=== PATIENT | female | born 1975 | race Caucasian/White ===

== ENCOUNTER 2020-04-28 08:02 | Outpatient (CLI) | payer OTHER, SELFPAY ==
--- NOTE | ~2020-04-28 | MM_ITS ---
EXAMINATION: MM screening [facility] w florinda HISTORY: Screening TECHNIQUE: Craniocaudal and mediolateral oblique 3-D tomosynthesis images were obtained and synthetic 2-D images were generated. CAD analysis was submitted and interpreted. COMPARISON: Comparison to multiple prior studies sequentially, with oldest reviewed study dated 04/05. BREAST PARENCHYMAL COMPOSITION: There are scattered areas of fibroglandular density. FINDINGS: There is no evidence of suspicious mass, calcification, or architectural distortion to sugg est malignancy in either breast. There has been no suspicious interval change. IMPRESSION: 1. No mammographic evidence of malignancy. 2. Recommend routine screening mammography in one year. BI-RADS Category 1: Negative Reviewed, dictated and finalized at location A.
== END 2020-04-28 08:03 | disposition home or self-care (01) ==
PROVIDERS: PCP Internal Medicine; Visit Provider Internal Medicine
DX: Z12.31 Encounter for screening mammogram for malignant neoplasm of breast (principal)
CPT/HCPCS: 77063; 77067

== ENCOUNTER 2021-09-17 08:26 | Outpatient (CLI) | payer OTHER, SELFPAY ==
--- NOTE | ~2021-09-17 | MM_ITS ---
EXAMINATION: MM screening [facility] BI w florinda HISTORY: Screening mammogram TECHNIQUE: Craniocaudal and mediolateral oblique 3-D tomosynthesis images were obtained and synthetic 2-D images were generated. CAD analysis was submitted and interpreted. COMPARISON: 04/28/2020, 04/09/2019, 04/05/2018 BREAST PARENCHYMAL COMPOSITION: There are scattered areas of fibroglandular density. FINDINGS: A stable asymmetry is present in the middle third of the left breast on the craniocaudal vi ew. There is no evidence of suspicious mass, calcification, or architectural distortion to suggest ma lignancy in either breast. There has been no suspicious interval change. IMPRESSION: 1. No mammographic evidence of malignancy. 2. Recommend routine screening mammography in one year. BI-RADS Category 2: Benign finding(s). Reviewed, dictated and finalized at location A. NTORY TRANSCRIBER
== END 2021-09-17 08:27 | disposition home or self-care (01) ==
PROVIDERS: PCP Internal Medicine; Visit Provider Internal Medicine
DX: Z12.31 Encounter for screening mammogram for malignant neoplasm of breast (principal)
CPT/HCPCS: 77063; 77067

== ENCOUNTER 2023-01-11 15:31 | Outpatient (CLI) | payer OTHER, SELFPAY ==
--- NOTE | ~2023-01-11 | MM_ITS ---
EXAMINATION: MM screening [facility] BI w florinda HISTORY: Screening mammogram TECHNIQUE: Craniocaudal and mediolateral oblique 3-D tomosynthesis images were obtained and synthetic 2-D images were generated. CAD analysis was submitted and interpreted. COMPARISON: 09/17/2021, 04/28/2020, 04/09/2019 BREAST PARENCHYMAL COMPOSITION: There are scattered areas of fibroglandular density. FINDINGS: No suspicious mass, calcification, or architectural distortion are identified in either lizbeth ast to suggest malignancy. There has been no suspicious interval change. IMPRESSION: 1. No mammographic evidence of malignancy. 2. Recommend routine screening mammography in one year. BI-RADS Category 1: Negative Reviewed, dictated and finalized at location A.
== END 2023-01-11 15:32 | disposition home or self-care (01) ==
PROVIDERS: PCP Internal Medicine
DX: Z12.31 Encounter for screening mammogram for malignant neoplasm of breast (principal)
CPT/HCPCS: 77063; 77067

== ENCOUNTER 2023-07-12 18:41 | Emergency (ER) | payer OTHER, SELFPAY ==
--- NOTE | ~2023-07-12 | XR_ITS ---
EXAMINATION: XR foot LT min 3V DATE: 07/12/2023 19:14 INDICATION: Left foot pain. Fall. TECHNIQUE: 4 views of left foot were obtained. COMPARISON: None. FINDINGS: There is moderate hallux valgus. No fracture. There is mild osteoarthritis of first metatar sophalangeal joint and first interphalangeal joint. There are enthesophytes at the posterior and plan tar aspects of calcaneal tuberosity. IMPRESSION: 1. Moderate hallux valgus. 2. Mild polyarticular osteoarthritis. Reviewed, dictated and finalized at location E.
--- NOTE | ~2023-07-12 | XR_ITS ---
EXAMINATION: XR ankle LT min 3V DATE: 07/12/2023 19:13 INDICATION: Left ankle injury and pain. TECHNIQUE: 4 views of left ankle were obtained. COMPARISON: None. FINDINGS: Bone alignment is normal. No fracture. 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 There is mild osteoarthritis of talonavicular joint. There are enthesoph ytes at the posterior and plantar aspects of calcaneal tuberosity. IMPRESSION: 1. No acute fracture. Reviewed, dictated and finalized at location E. IMPRESSION: 1. No acute fracture.
--- NOTE | ~2023-07-12 | XR_ITS ---
EXAMINATION: XR knee LT 3V DATE: 07/12/2023 19:14 INDICATION: Left knee pain. Injury. TECHNIQUE: 3 views of left knee were obtained. COMPARISON: None. FINDINGS: Bone alignment is normal. No fracture. There is mild tricompartmental osteoarthritis. No kn ee joint effusion. IMPRESSION: 1. Mild left knee osteoarthritis. Reviewed, dictated and finalized at location E.
--- NOTE | 2023-07-12 18:43 | ED.LOWEXIN ---
HPI - Extremity Injury (Lower) General Chief Complaint: Extremity Injury, Lower Stated Complaint: Injured Knee/Foot Time Seen by Provider: 07/12/23 18:42 Source: patient Mode of arrival: ambulatory Limitations: no limitations History of Present Illness HPI Narrative: Flor is a 48-year-old female patient presenting to clinic today with complaints of left knee, left ankle, and left foot pain after falling today while at work. She reports that she missed a step when coming down the steps at work and fell down approximately 4 steps and hit her left knee and twisted her left ankle and foot. Has an abrasion to the left anterior knee-bleeding is controlled. Has slight bruising to the anterior knee as well with tenderness to palpation. Is reporting pain to the top of the lateral foot and ankle. Rates pain currently a 03/05 Related Data Home Medications Medication Instructions Recorded Confirmed multivitamin 1 cap PO DAILY 08/10/19 07/12/23 omeprazole 20 mg capsule,delayed 20 mg PO DAILY 08/10/19 07/12/23 release saliva substitute combo no.9 15 ml mucous membrane DAILY 08/10/19 07/12/23 (Biotene Dry Mouth Oral Rinse mouthwash) semaglutide (weight loss) 2.4 2.4 mg subcut WEEKLY 07/12/23 07/12/23 mg/0.75 mL subcutaneous pen injector ([employer]) Allergies Allergy/AdvReac Type Severity Reaction Status Date / Time No Known Allergies Allergy Verified 07/12/23 18:53 Review of Systems Review of Systems: Pertinent positives per HPI. Patient denies any fever, chills, rash, headache, visual changes, dizziness, cough, runny nose, sore throat, shortness of breath, chest pain, palpitations, nausea, vomiting, diarrhea, constipation, abdominal pain, or any urinary issues. [facility] Past Medical History Medical History Heartburn Obesity Family History Family History Grandparent Diabetes mellitus Family history of cardiovascular disease Social History Social History Smoking status: Never smoker Second hand tobacco smoke exposure: No Alcohol intake: current Alcohol use details: Pt drinks rarely. Comments At the time of my signature, I reviewed and agree with the nursing past medical, surgical, social, and family history. There is no relevant family history pertinent to the patient complaint. Exam Narrative: General: Well-developed, overweight, in no apparent distress Head: Normocephalic, atraumatic. Cardio: Regular rate and rhythm, s1 and s2 normal, no murmur appreciated. Resp: Clear to auscultation bilaterally, no rhonchi, rales, wheezing or rubs. Musculoskeletal: No deformity, abrasion and bruising noted over to the anterior knee, abrasion measuring approximately 2.5 cm, bleeding is controlled, tender to palpation over the anterior knee, left lateral ankle and left lateral dorsal foot with mild swelling noted,grossly normal range of motion, muscle strength strong and equal, peripheral pulse strong, no edema, no cyanosis, normal gait and station Course Course Emergency Course: Portions of this record may have been created with voice recognition software. Level of Care: Express Care Visit Vital Signs Vital signs: Vital Signs Temperature 36.4 C L 07/12/23 18:48 Pulse Rate 80 07/12/23 18:48 Respiratory Rate 18 07/12/23 18:48 Blood Pressure 109/61 07/12/23 18:48 Pulse Oximetry 100 07/12/23 18:48 Oxygen Delivery Room Air 07/12/23 18:48 Temperature 36.4 C L 07/12/23 18:48 Pulse Rate 80 07/12/23 18:48 Respiratory Rate 18 07/12/23 18:48 Blood Pressure 109/61 07/12/23 18:48 Pulse Oximetry 100 07/12/23 18:48 Oxygen Delivery Room Air 07/12/23 18:48 Vital signs reviewed MDM - Extremity Injury (Lower) MDM Narrative Medical decision making narrative: At the time of visit patient i
[2023-07-12 18:48] VITALS: BP 109/61; PULSE 80; RESP 18; TEMP 36.4; O2SAT 100
[2023-07-12] MEDS: TETANUS,DIPHTHERIA,AC PERTUSSIS ADULT (0.5 ML) BOOSTRIX IM (19:37)
== END 2023-07-12 19:37 | disposition home or self-care (01) ==
PROVIDERS: Emergency Provider Nurse Practitioner Family; PCP Internal Medicine
DX: S80.212A Abrasion, left knee, initial encounter (principal); S93.412A Sprain of calcaneofibular ligament of left ankle, initial encounter; S93.602A Unspecified sprain of left foot, initial encounter; Z79.899 Other long term (current) drug therapy; Z23 Encounter for immunization; W10.9XXA Fall (on) (from) unspecified stairs and steps, initial encounter
CPT/HCPCS: 73562; 73610; 73630; 90471; 90715; 99214; G0463

== ENCOUNTER 2023-12-23 12:16 | Emergency (ER) | payer OTHER, SELFPAY ==
[2023-12-23 12:36] VITALS: BP 106/74; PULSE 81; RESP 16; TEMP 37.3; O2SAT 100
--- NOTE | 2023-12-23 12:48 | ED.GENADULT ---
HPI - General Adult General Chief complaint: Urogenital-Female Stated complaint: pain when urinating Time Seen by Provider: 12/23/23 12:46 Source: patient, RN notes reviewed and old records reviewed Mode of arrival: ambulatory Limitations: no limitations History of Present Illness HPI narrative: 48-year-old female to Express Care with complaint of dysuria, urinary frequency, urinary urgency for 2 days. Patient has been treating at home with Tylenol with minimal relief. Patient denies fever, flank pain, abdominal pain. Related Data Home Medications Medication Instructions Recorded Confirmed multivitamin 1 cap PO DAILY 08/10/19 12/23/23 omeprazole 20 mg capsule,delayed 20 mg PO DAILY 08/10/19 12/23/23 release semaglutide (weight loss) 2.4 2.4 mg subcut WEEKLY 07/12/23 12/23/23 mg/0.75 mL subcutaneous pen injector ([email or web address]) cyanocobalamin (vitamin B-12) 1,000 mcg PO DAILY 12/23/23 12/23/23 1,000 mcg tablet Allergies Allergy/AdvReac Type Severity Reaction Status Date / Time No Known Allergies Allergy Verified 12/23/23 12:33 Review of Systems Review of Systems: All systems reviewed & are unremarkable except as noted in HPI and below Constitutional: Constitutional: Reports as per HPI, Denies body ache(s), Denies chills, Denies fever(s) and Denies poor appetite Eyes: Eyes: Reports no additional eye complaints ENT: Reports system reviewed and no additional complaints, except as documented Cardiovascular: Cardiovascular: Reports no additional cardiovascular complaints, Denies chest pain and Denies dyspnea Respiratory: Respiratory: Reports no additional respiratory complaints, Denies cough and Denies dyspnea Genitourinary: Genitourinary: Reports as per HPI, Reports nocturia, Reports dysuria, Denies flank pain and Reports urinary urgency Musculoskeletal: Musculoskeletal: Reports no additional musculoskeletal complaints Neurologic: Reports system reviewed and no additional complaints, except as documented Psychiatric: Psychiatric: Reports no additional psychiatric complaints [facility] Past Medical History Medical History Heartburn Obesity Family History Family History Grandparent Diabetes mellitus Family history of cardiovascular disease Social History Social History Smoking status: Never smoker Second hand tobacco smoke exposure: No Alcohol intake: current Alcohol use details: Pt drinks rarely. Comments At the time of my signature, I reviewed and agree with the nursing past medical, surgical, social, and family history. There is no relevant family history pertinent to the patient complaint. Exam Const: General: cooperative, healthy appearing, no acute distress, well developed, alert, uncomfortable, well groomed and well nourished Nutritional Appearance: well nourished Orientation/consciousness: patient oriented x3 Limitations: no limitations HENMT: Head: normal to inspection Ears: external ears normal Face/Nose/Sinus: Normal external nose present, Normal nares present, normal facial exam, No erythema and No edema Face and sinus: normal facial exam, no erythema and no edema Mouth: Yes Normal oral and palatal mucosa present Eyes: General: appearance normal, both eyes and all related structures Neck: Neck: normal visual inspection, full ROM and no meningeal signs Lymphatic: no lymphadenopathy noted and no lymphedema noted Chest: Chest palpation & inspection: normal inspection of the chest Resp: Effort & Inspection: normal respiratory effort and able to speak in complete sentences Auscultation: clear to auscultation bilaterally Cardio: Jugular venous distension: no JVD Rate: regular rate Rhythm: regular rhythm : General: Yes no CVA tenderness Back/Spine/Pelvis: Cervical Spine: cervical ROM no
== END 2023-12-23 13:01 | disposition home or self-care (01) ==
PROVIDERS: Emergency Provider Nurse Practitioner Family; PCP Internal Medicine
DX: N39.0 Urinary tract infection, site not specified (principal); R12 Heartburn; E66.9 Obesity, unspecified; Z68.31 Body mass index [BMI] 31.0-31.9, adult
CPT/HCPCS: 81003; 87086; 87088; 99213; G0463

== ENCOUNTER 2024-01-20 08:19 | Outpatient (CLI) | payer OTHER, SELFPAY ==
[2024-01-20 13:51] LABS: Hematocrit 39.8 % (37.0-47.0); Hemoglobin 12.5 g/dL (12.0-15.0); Mean Corpuscular HGB Conc 31.4 g/dl (32-36); Mean Corpuscular Hemoglobin 29.3 pg (26-34); Mean Corpuscular Volume 93.2 fl (80-100); Mean Platelet Volume 9.7 fl (7.4-10.4); Platelet Count Result 234 k/mm3 (150-375); Red Blood Count 4.27 M/mm3 (4.2-5.4); Red Cell Distribution Width 13.8 % (11.5-14.5); White Blood Count 3.3 K/mm3 (4.5-10.0)
[2024-01-20 14:40] LABS: HIV 1/2 Ab P24 Ag Result Negative (Negative)
[2024-01-20 14:58] LABS: Vitamin D 25 Hydroxy 44.5 ng/mL
[2024-01-20 15:03] LABS: Hepatitis B Surface Antigen Negative (Negative)
[2024-01-20 15:06] LABS: Alanine Aminotransferase 19 U/L (6-35); Albumin Level 4.1 g/dL (3.5-5.1); Alkaline Phosphatase 64 U/L (38-126); Anion Gap 4 mmol/L (4-12); Aspartate Amino Transferase 57 U/L (14-36); Bilirubin,Total 0.5 mg/dL (0.2-1.3); Blood Urea Nitrogen 14 mg/dL (7-17); Calcium 9.1 mg/dL (8.4-10.2); Carbon Dioxide 28 mmol/L (22-30); Chloride 108 mmol/L (98-107); Cholesterol 187 mg/dL (0-200); Estimated Glomerular Filt Rate > 60; Ferritin 8.65 ng/mL (6.24-137); Glucose 86 mg/dL (65-110); HDL Direct 58 mg/dL; Potassium 4.3 mmol/L (3.4-5.0); Sodium 140 mmol/L (137-145); Triglycerides 75 mg/dL (<150)
[2024-01-20 15:18] LABS: LDL Cholesterol Direct 101 mg/dL
[2024-01-20 15:21] LABS: Hepatitis C Virus Antibody Negative (Negative)
[2024-01-20 16:15] LABS: Chlamydia trachomatis NOT DETECTED (NOT DETECTE); Neisseria gonorrhoeae PCR NOT DETECTED (NOT DETECTE)
[2024-01-20 16:16] LABS: Folic Acid > 20.0 ng/mL (2.76->20)
[2024-01-23 11:04] LABS: Vitamin B1 27 nmol/L (8-30)
[2024-01-25 11:00] LABS: Herpes Simplex Type 1 DNA PCR NOT DETECTED; Herpes Simplex Type 2 DNA PCR NOT DETECTED
== END 2024-01-20 08:20 | disposition home or self-care (01) ==
LOC: ANHGOSHLAB 08:22
PROVIDERS: PCP Nurse Practitioner; Visit Provider Nurse Practitioner
DX: Z11.3 Encounter for screening for infections with a predominantly sexual mode of transmission (principal); R63.4 Abnormal weight loss; R53.82 Chronic fatigue, unspecified; E66.01 Morbid (severe) obesity due to excess calories; D64.9 Anemia, unspecified; K91.2 Postsurgical malabsorption, not elsewhere classified; Z98.84 Bariatric surgery status; R30.0 Dysuria; Z13.220 Encounter for screening for lipoid disorders; Z13.818 Encounter for screening for other digestive system disorders
CPT/HCPCS: 36415; 80053; 80061; 82306; 82607; 82728; 82746; 84425; 84443; 85027; 86703; 86803; 87340; 87491; 87529; 87591; G0432

== ENCOUNTER 2024-02-09 09:43 | Outpatient (CLI) | payer OTHER, SELFPAY ==
--- NOTE | ~2024-02-09 | MM_ITS ---
EXAMINATION: MM screening [facility] w [place] HISTORY: Screening mammogram TECHNIQUE: Craniocaudal and mediolateral oblique 3-D tomosynthesis images were obtained and synthetic 2-D images were generated. CAD analysis was submitted and interpreted. COMPARISON: January 11, 2023, September 17, 2021, April 28, 2020, April 09, 2019 bilateral screening mamm ogram examinations BREAST PARENCHYMAL COMPOSITION: There are scattered areas of fibroglandular density. FINDINGS: There is no evidence of suspicious mass, calcification, or architectural distortion to sugg est malignancy in either breast. There has been no suspicious interval change. IMPRESSION: 1. No mammographic evidence of malignancy. 2. Recommend routine screening mammography in one year. BI-RADS Category 1: Negative Reviewed, dictated and finalized at location B.
== END 2024-02-09 09:44 | disposition home or self-care (01) ==
LOC: ANHIMG 09:45
PROVIDERS: PCP Nurse Practitioner
DX: Z12.31 Encounter for screening mammogram for malignant neoplasm of breast (principal)
CPT/HCPCS: 77063; 77067

== ENCOUNTER 2024-06-07 09:30 | Outpatient (CLI) | payer OTHER, SELFPAY ==
[2024-06-07 18:47] LABS: Basophils Absolute Auto 0.1 K/mm3 (0.0-0.1); Basophils Percent Auto 0.9 % (0.2-1.2); Eosinophils Absolute Auto 0.1 K/mm3 (0-0.3); Eosinophils Percent Auto 1.8 % (0-4.4); Hematocrit 37.7 % (37.0-47.0); Hemoglobin 12.2 g/dL (12.0-15.0); Immature Granulocyte Absolute 0.02 K/mm3 (0.00-0.031); Immature Granulocyte Percent A 0.4 % (0-0.5); Mean Corpuscular HGB Conc 32.4 g/dl (32-36); Mean Corpuscular Hemoglobin 30.2 pg (26-34); Mean Corpuscular Volume 93.3 fl (80-100); Mean Platelet Volume 9.8 fl (7.4-10.4); Monocytes Absolute Auto 0.5 K/mm3 (0.1-0.6); Monocytes Percent Auto 9.5 % (2.6-8.5); Neutrophils Absolute Auto 3.4 K/mm3 (1.3-6.7); Neutrophils Percent Auto 59.4 % (45.5-73.1); Platelet Count Result 227 k/mm3 (150-375); Red Blood Count 4.04 M/mm3 (4.2-5.4); Red Cell Distribution Width 13.6 % (11.5-14.5); White Blood Count 5.7 K/mm3 (4.5-10.0)
[2024-06-07 19:13] LABS: Alanine Aminotransferase 23 U/L (6-35); Alkaline Phosphatase 57 U/L (38-126); Anion Gap 8 mmol/L (4-12); Aspartate Amino Transferase 36 U/L (14-36); Bilirubin,Total 0.3 mg/dL (0.2-1.3); Blood Urea Nitrogen 16 mg/dL (7-17); Calcium 8.9 mg/dL (8.4-10.2); Carbon Dioxide 25 mmol/L (22-30); Chloride 102 mmol/L (98-107); Erythrocyte Sedimentation Rate 16 mm/hr (0-20); Estimated Glomerular Filt Rate > 60; Glucose 69 mg/dL (65-110); Potassium 4.2 mmol/L (3.4-5.0); Sodium 135 mmol/L (137-145)
== END 2024-06-07 09:31 | disposition home or self-care (01) ==
LOC: ANHGOSHLAB 09:31
PROVIDERS: PCP Nurse Practitioner; Visit Provider Nurse Practitioner
DX: R51.9 Headache, unspecified (principal)
CPT/HCPCS: 36415; 80053; 85025; 85652

== ENCOUNTER 2024-06-30 10:50 | Outpatient (CLI) | payer OTHER, SELFPAY ==
--- NOTE | ~2024-06-30 | MR_ITS ---
EXAMINATION: MR brain/brain stem wo/w con DATE: 06/30/2024 11:45 INDICATION: R51.9 - Headache, unspecified TECHNIQUE: Magnetic resonance imaging (MRI) of the brain and brainstem was performed with 16 mL Multi Corey intravenous contrast. Sequences included sagittal and axial T1-weighted SE, axial diffusion-elier ghted FS EPI ASSET, axial T2*-weighted GRE, axial T2-weighted FLAIR Propeller, and axial T2-weighted Propeller. Postcontrast axial and coronal T1-weighted SE was obtained. Apparent diffusion coefficient (ADC) maps were created. COMPARISON: None. FINDINGS: No abnormal restricted diffusion to suggest acute ischemic infarct. No MRI evidence of hemorrhage or extra-axial collection. No suspicious foci of susceptibility to suggest prior intraparenchymal hemorr odalis. Normal white matter signal. No evidence of advanced or lobar predominant parenchymal volume los s. The basilar cisterns are patent. Flow voids are preserved. Paranasal sinuses are within normal garcia its. Globes and orbital contents are within normal limits. IMPRESSION: Normal MR brain findings. Reviewed, dictated and finalized at location K. IMPRESSION: Normal MR brain findings.
== END 2024-06-30 10:51 | disposition home or self-care (01) ==
LOC: ANHIMG 10:52
PROVIDERS: PCP Nurse Practitioner; Visit Provider Nurse Practitioner
DX: R51.9 Headache, unspecified (principal)
CPT/HCPCS: 70553; A9577

== ENCOUNTER 2025-06-14 09:34 | Outpatient (CLI) | payer OTHER, SELFPAY ==
--- NOTE | ~2025-06-14 | MM_ITS ---
EXAMINATION: MM screening silverio BI w florinda HISTORY: Screening TECHNIQUE: Craniocaudal and mediolateral oblique 3-D tomosynthesis images were obtained and synthetic 2-D images were generated. CAD analysis was submitted and interpreted. COMPARISON: Comparison to multiple prior studies sequentially, with oldest reviewed study dated , 04/05/2018 BREAST PARENCHYMAL COMPOSITION: There are scattered areas of fibroglandular density. FINDINGS: There is no evidence of suspicious mass, calcification, or architectural distortion to suggest malignancy in either breast. IMPRESSION: 1. No mammographic evidence of malignancy. 2. Recommend routine screening mammography in one year. BI-RADS Category 1: Negative Reviewed, dictated and finalized at location B.
--- OUTSIDE RECORDS SUMMARY | 2025-06-14 09:40 | XMS_ITS | Clinical Summary ---
Author [place] [facility] [place] [address] Address [address] [place] [id number] Care Team Providers Care Miniature Set Builder Name Role Phone No, Physician Primary Care Provider [phone] Allergies No known active allergies Medications liraglutide, weight loss, 3 mg/0.5 mL (18 mg/3 mL) pen injector 03/26/2022 Active multivitamin capsule Take by mouth Active topiramate (TOPAMAX) 50 mg tablet 07/28/2022 Active Wegovy 1.7 mg/0.75 mL auto-injector 08/09/2022 Activ e semaglutide (Wegovy) 1.7 mg/0.75 mL auto-injector 07/12/2022 Activ e Active Problems No known active problems Social History Tobacco Use Types Packs/Day Years Used Date Smoking Tobacco: Never Smokeless Tobacco: Never Tobacco Cessation:Counseling Given: Not Answered Personal Safety Answer Date Recorded Getting School Help Needed Not on file 10/01 Comments Unknown Sex and Gender Information Value Date Recorded Sex Assigned at Not on file Legal Sex Female 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 Gender Identity Not on file Sexual Orientation Not on file Obstetrics History Last Filed Vital Signs Vital Sign Reading Time Taken Comments Blood Pressure 116/77 08/15/2022 2:36 PM SEISMIC SURVEY ASSISTANT Pulse 77 08/15/2022 2:36 PM SEISMIC SURVEY ASSISTANT Temperature 36.6 C (97.9 F) 08/15/2022 2:36 PM SEISMIC SURVEY ASSISTANT Respiratory Rate 16 08/15/2022 2:36 PM SEISMIC SURVEY ASSISTANT Oxygen Saturation 99% 08/15/2022 2:36 PM SEISMIC SURVEY ASSISTANT Inhaled Oxygen Concentration - - Weight 88.9 kg (196 lb) 08/15/2022 2:36 PM SEISMIC SURVEY ASSISTANT Height 162.6 cm (5' 4) 08/15/2022 2:36 PM SEISMIC SURVEY ASSISTANT Body Mass Index 33.64 08/15/2022 2:36 PM SEISMIC SURVEY ASSISTANT Plan of Treatment Health Maintenance Due Date Last Done Comments Breast Cancer Screening-Mammogram 1974 Cervical Cancer Screening 1974 Colon Cancer Screening-Colonoscopy 1974 Depression Screening 1974 Hepatitis C Screening 1974 DTaP/Tdap/Td Vaccine (1 - Tdap) 1985 Hepatitis B Screening 02/15/1992 Regular Well Visit/Exam 18-64 02/15/1992 Zoster Vaccine (1 of 2) 02/15/2024 Covid-19 Vaccine ( - 2024-2 6 season) 2025 09/22/2021, 11/12/2020, 10/14/2020 Influenza Vaccine (#1) 2025 07/03/2019 Pneumococcal vaccine <65 Aged Out No longer eligible based on patient's age to complete this topic Insurance [facility] [id number] Care Teams Miniature Set Builder Relationship Specialty Start Date End Date No, Physician PCP - General 08/15/22
--- OUTSIDE RECORDS SUMMARY | 2025-06-14 09:40 | XMS_ITS | Clinical Summary ---
Author Organization [facility] Address [address] [place] [address] Phone Care Team Providers Care Clean Up Supervisor Name Role Phone Unavailable Primary Care Provider Unavailabl e Allergies No known active allergies Medications Multivitamin Capsule Take by mouth. Active BD Ultra-Fine Short Pen Needle 31 gauge x 5/16 Needle 05/03/2022 Active phentermine (ADIPEX P) 37.5 mg tablet Take 37.5 mg by mouth daily in the morning. 02/27/2025 Active Wegovy 2.4 mg/0.75 mL Pen Injector 05/01/2025 Active Active Problems Problem Noted Date Diagnosed Date H/O bariatric surgery 08/20/2020 Labor, GBS-, B-, arom 1020 11/15/2013 Encounters Date Type Department Care Team Description 06/12/2025 External Device Data STL ABSTRACTION Provider, Abstract 06/11/2025 External Device Data STL ABSTRACTION Provider, Abstract 05/07/2025 External Device Data STL ABSTRACTION Provider, Abstract 05/07/2025 External Device Data STL ABSTRACTION Provider, Abstract 05/01/2025 3:00 PM CDT Office Visit [facility] ORDER EDITOR [facility] [address] [facility] [address] [place] [address] Marc Marcano MD Encounter for well woman exam with routine gynecological exam (Primary Dx); Screening for malignant neoplasm of cervix; Breast cancer screening by mammogram 05/01/2025 Orders Only [facility] ORDER EDITOR [facility] [address] [facility] [address] [place] [address] Abilio Alamo, CHEMISTRY PHYSICS TEACHER Screening for malignant neoplasm of cervix from Last 3 Months Immunizations Immunization Administration Dates Next Due (M-M-R II/PRIORIX)(12 MO UP) MEASLES, MUMPS AND RUBELLA VIRUS VACCINE, 0.5 ML IM/SUBCUT 11/16/2013 Rho (D) IMMUNE GLOBULIN 1,500 UNIT(300 MCG) INJE CTION 11/16/2013 Family History Medical History Relation Name Comments Healthy Brother Healthy Father Heart Disease Maternal Grandfather Hypertension Maternal Grandfather Cancer Maternal Grandmother Heart Disease Maternal Grandmother Hypertension Maternal Grandmother Healthy Mother Relation Name Status Comments Brother Alive Father Alive Maternal Grandfather Maternal Grandmother Mother Alive Paternal Grandfather Paternal Grandmother Social History Tobacco Use Types Packs/Day Years Used Date Smoking Tobacco: Never Smokeless Tobacco: Never Tobacco Cessation:Counseling Given: No Alcohol Use Standard Drinks/Week Comments Yes 0 (1 standard drink = 0.6 oz pur e alcohol) Comments No Sex and Gender Information Value Date Recorded Sex Assigned at Not on file Legal Sex Female 2:51 PM ENVIRONMENTAL RESOURCE SPECIALIST Gender Identity Not on file Sexual Orientation Not on file Occupation Industry Job Start Date Job End Date Not on file Not on file Not on file Not on file Last Filed Vital Signs Vital Sign Reading Time Taken Comments Blood Pressure 122/72 05/01/2025 3:15 PM CDT Pulse 79 11/26/2021 1:53 PM ENVIRONMENTAL RESOURCE SPECIALIST Temperature 37 C (98.6 F) 11/26/2021 1:53 PM ENVIRONMENTAL RESOURCE SPECIALIST Respiratory Rate 16 11/26/2021 1:53 PM ENVIRONMENTAL RESOURCE SPECIALIST Oxygen Saturation 99% 11/13/2021 9:44 PM ENVIRONMENTAL RESOURCE SPECIALIST Inhaled Oxygen Concentration - - Weight 76.9 kg (169 lb 9.6 oz) 05/01/2025 3:15 P M CDT Height 162.6 cm (5' 4) 05/01/2025 3:15 PM CDT Body Mass Index 29.11 05/01/2025 3:15 PM CDT Plan of Treatment Upcoming Encounters Date Type Department Care Team (Late st Contact Info) Description 05/05/2026 4:20 PM CDT Office Visit [facility] ORDER EDITOR [facility] [place] [address] [address] [place] [id number] Marc Marcano MD [address] [facility] [address] [place] [address] Health Maintenance Due Date Last Done Comments Pre-Diabetes and Diabetes Screening 1974 DTAP/TDAP/TD VACCINES (1 - Tdap) 1993 HEPATITIS B VACCINES (1 of 3 - 19+ 3-dose series) 1993 COLORECTAL SCREENING 2019 Colorectal Cancer Screening 2019 FIT-DNA Q 3 years 2019 FIT/FOBT Q 1 year 2019 Flex Sig/CT Colonography Q 5 years 2019 BREAST CANCER SCREENING 01/12/2024 01/11/2023 ZOSTER VACCINE (1 of 2) 02/15/2024 INFLUENZA VACCINE (#1) 2025 07/03/2020 PAP SMEAR 05/01/2028 05/01/2025, 09/26, 07/21/2022, Additional history exists CERVICAL CANCER SCREENING 05/01/2030 HPV/Cotest (21-29) 05/01/2030 05/01/2025, 0 10/07/2023, 07/21/2022, Additional history exists HPV/Cotest (30-65) 05/01/2030 05/01/2025, 0 10/07/2023, 07/21/2022, Additional history exists Procedures Procedure Name Priority Date/Time Associated Diagnosis Comments CERV/VAG CYTO AGE BASED SCREEN PAP Routine 05/01/2025 3:59 PM CDT Screening for malignant neoplasm of cervix MAMMO SCREEN BILAT W OR WO CAD Routine 01/11/2023 Breast cancer screening by mammogram from Last 3 Months or Most Recently Relevant to Health Maintenance Results * CERV/VAG CYTO AGE BASED SCREEN PAP (05/01/2025 3:59 PM CDT) COMMENT (PAP): [facility] [place] Comment: This order for age-based cervical cancer and STI screening follows ACOG guidelines(PB 168, 140, PWP842). See individual assays for performing site location. CLINICAL INFORMATION [facility] Comment:None given LAST MENSTRUAL PERIOD [facility] Comment:04/24/2025 PREV PAP: [facility] Comment:NONE GIVEN PREV BX: [facility] Comment:NONE GIVEN SOURCE [facility] Comment:Endocervix ADEQUACY: [facility] Comment: Satisfactory for evaluation. Endocervical/transformation zone component present. PAP INTERP [facility] Comment: Cytology Results: Negative for intraepithelial lesion or malignancy. COMMENT (PAP TEST) [facility] Comment: This Pap test has been evaluated with the ThinPrep(R) Imaging System. DEVELOPER PROVER MECHANICAL: Michael est [facility] Comment: LM, CT(ASCP) CT Screening Location: [place] [address] [place] [id number] CLIA: [id number] Slide preparation performed at: [facility], [facility] [place], [address] CLIA: [id number] EXPLANATORY NOTE [facility] Comment: EXPLANATORY NOTE: The Pap is a screening test for cervical cancer. It is not a diagnostic test and is subject to false negative and false positive results. It is most reliable when a satisfactory sample, regularly obtained, is submitted with relevant clinical findings and history, and when the Pap result is evaluated along with historic and current clinical information. HPV E6/E7 Not Detected Not Detected [facility] Comment: Methodology: Lawyer Probate-Mediated Amplification This assay detects E6/E7 viral messenger RNA (mRNA) from 14 high-risk HPV types (16,18,31,33,35,39,45,51,52,56,58,59,66,68). Cervical sources are required for HPV testing. If a vaginal source from a patient who has had a total hysterectomy with removal of cervix was submitted, please contact the testing laboratory for alternative testing options. For additional information, please refer to http://education.OdinOtvet/faq/DKB574i9 (This link if provided for information/ educational purposes only.) Test Performed at: [facility] [address] [place] [address] Kevan RIOS Genital SWAB OF ENDOCERVIX / Unknown 05/01/2025 3:59 PM CDT 05/02/2025 3:47 PM CDT Marc Marcano MD PATHOLOGY/CYTOLOGY ORDERABLE S Final Result [facility] [phone] [address] * MAMMO SCREEN BILAT W OR WO CAD (01/11/2023) Anatomical Region Laterality Modality Breast Bilateral Mammography Marc Marcano MD MAMMO ORDERABLES Final Resul t from Last 3 Months or Most Recently Relevant to Health Maintenance Insurance [facility] [employer] Advance Directives For more information, please contact: [phone] * Full Code (Latest Code Status on File) Date Activated Date Inactivated Comments 11/13/2021 4:31 PM 11/13/2021 11:53 PM * Full Code Date Activated Date Inactivated Comments 11/15/2013 9:49 PM 11/17/2013 12:18 PM * Full Code Date Activated Date Inactivated Comments 11/15/2013 8:52 AM 11/15/2013 9:48 PM
== END 2025-06-14 09:35 | disposition home or self-care (01) ==
LOC: ANHFOHIMG 09:38
PROVIDERS: Visit Provider Nurse Practitioner
DX: Z12.31 Encounter for screening mammogram for malignant neoplasm of breast (principal)
CPT/HCPCS: 77063; 77067